=== PATIENT | male | born 1980 | race African-American/Black ===

== ENCOUNTER 2021-04-27 23:48 | Emergency (ER) | payer SELFPAY ==
[~2021-04-27] VITALS: Ht 185.4 cm; Wt 100.0 kg
[2021-04-28 00:20] VITALS: BP 134/81
[2021-04-28] MEDS ORDERED: ONDA4TAB7 PO (00:23)
--- NOTE | 2021-04-28 00:24 | PHYS DOC ---
General Adult EDM: Chief Complaint: NAUSEA/VOMITING/DIARRHEA HPI: HPI: Patient is a 40 year olderm-bdax-ydl male presents for evaluation after 2 episodes of vomiting. Patient was at work when episodes of vomiting occurred. Patient denies any associated abdominal discomfort. Patient states he feels like he ate something bad. Denies any associated diarrhea. No history of fever chills cough congestion. Patient states he feels fine. Physical exam is unremarkable at this time I feel the patient is stable for discharge without lab or radiologic imaging. Review of Systems: Review of Systems: Constitutional: Denies fever or chills. [] Eyes: Denies change in visual acuity. [] HENT: Denies nasal congestion or sore throat. [] Respiratory: Denies cough or shortness of breath. [] Cardiovascular: Denies chest pain or edema. [] GI: Denies abdominal pain, Positive nausea, Positive vomiting, : Denies dysuria. [] Musculoskeletal: Denies back pain or joint pain. [] Integument: Denies rash. [] Neurologic: Denies headache, focal weakness or sensory changes. [] Endocrine: Denies polyuria or polydipsia. [] Lymphatic: Denies swollen glands. [] Psychiatric: Denies depression or anxiety. [] Heart Score: C/O Chest Pain: N/A Risk Factors: Risk Factors: DM, Current or recent (<one month) smoker, HTN, HLP, family history of CAD, obesity. Risk Scores: Score 0 - 3: 2.5% MACE over next 6 weeks - Discharge Home Score 4 - 6: 20.3% MACE over next 6 weeks - Admit for Clinical Observation Score 7 - 10: 72.7% MACE over next 6 weeks - Early Invasive Strategies Physical Exam: PE: Constitutional: Well developed, well nourished, no acute distress, non-toxic appearance. [] HENT: Normocephalic, atraumatic, bilateral external ears normal, oropharynx moist, no oral exudates, nose normal. [] Eyes: PERRLA, EOMI, conjunctiva normal, no discharge. [] Neck: Normal range of motion, no tenderness, supple, no stridor. [] Cardiovascular:Heart rate regular rhythm, no murmur [] Lungs & Thorax: Bilateral breath sounds clear to auscultation [] Abdomen: Bowel sounds normal, soft, no tenderness, no masses, no pulsatile masses. [] Skin: Warm, dry, no erythema, no rash. [] Back: No tenderness, no CVA tenderness. [] Extremities: No tenderness, no cyanosis, no clubbing, ROM intact, no edema. [] Neurologic: Alert and oriented X 3, normal motor function, normal sensory function, no focal deficits noted. [] Psychologic: Affect normal, judgement normal, mood normal. [] EKG: EKG: [] Radiology/Procedures: Radiology/Procedures: [] Course & Med Decision Making: Course & Med Decision Making Pertinent Labs and Imaging studies reviewed. (See chart for details) [] Dragon Disclaimer: Dragon Disclaimer: This electronic medical record was generated, in whole or in part, using a voice recognition dictation system. Departure Departure Impression: Primary Impression: Nausea and vomiting Referrals: NO PCP (PCP) Patient Instructions: Nausea and Vomiting Scripts Ondansetron Hcl (ZOFRAN) 4 Mg Tablet 1 TAB PO Q6HRS, #20 TAB Prov: CODY ALICIA DO 04/28/21 CODY ALICIA DO Apr 28, 2021 00:24
== END 2021-04-28 00:31 | disposition home or self-care (01) ==
LOC: ER 23:48
DX: R11.2 Nausea with vomiting, unspecified (principal)
CPT/HCPCS: 99283